=== PATIENT | female | born 1980 | race Two or more races ===

== ENCOUNTER 2019-12-06 13:16 | Emergency (ER) | payer MEDICAID ==
[~2019-12-06] VITALS: Ht 160 cm; Wt 71.7 kg
[2019-12-06 13:23] VITALS: BP 125/81; Ht 160 cm; Wt 71.7 kg
== END 2019-12-06 14:30 | disposition home or self-care (01) ==
LOC: ED 13:16
DX: H66.92 Otitis media, unspecified, left ear (principal); J11.1 Influenza due to unidentified influenza virus with other respiratory manifestations; Z88.0 Allergy status to penicillin